=== PATIENT | female | born 1980 | race Caucasian/White ===

== ENCOUNTER 2018-01-13 21:50 | Emergency (ER) | payer MEDICAID, OTHER ==
[2018-01-13 21:50] VITALS: BMI 23.3
[2018-01-13 22:04] VITALS: RESP 18; TEMP 98
--- NOTE | 2018-01-13 22:34 | C.PDOC ---
History Of Present Illness 37 y/o female presents to ED for near syncopal episode due to grief while at today. Denies any other physical complaints. Time Seen by Provider: 01/13/18 22:28 Chief Complaint (Nursing): Anxiety History Per: Patient History/Exam Limitations: no limitations Onset/Duration Of Symptoms: Hrs Current Symptoms Are (Timing): Still Present Suicide/Self Injury Attempted (Context): None Modifying Factor(s): None Associated Symptoms: denies: Suicidal Thoughts, Suicidal Plan Involuntary Hold By: None Recent travel outside of the [place]: No Past Medical History Reviewed: Historical Data, Nursing Documentation, Vital Signs Vital Signs: Last Vital Signs Temp 98 F 01/13/18 22:38 Pulse 85 01/13/18 22:38 Resp 18 01/13/18 22:38 BP 126/75 01/13/18 22:38 Pulse Ox 99 01/13/18 22:38 - Medical History PMH: No Chronic Diseases Denies: Chronic Kidney Disease - [facility] Procedures INCIS VULVA/PERINEUM NEC (04/30/13) TETANUS TOXOID ADMINIST (04/30/13) Family History: States: Unknown Family Hx - Social History Hx Tobacco Use: No Hx Alcohol Use: Yes Hx Substance Use: No - Immunization History Hx Tetanus Toxoid Vaccination: No Hx Influenza Vaccination: No Hx Pneumococcal Vaccination: No Review Of Systems Constitutional: Negative for: Fever, Chills Gastrointestinal: Negative for: Nausea, Vomiting, Abdominal Pain, Diarrhea Skin: Negative for: Rash Neurological: Positive for: Other (Near syncopal episode ). Negative for: Weakness, Numbness, Headache, Dizziness Psych: Negative for: Suicidal ideation Physical Exam - Physical Exam Appears: Well, Non-toxic, No Acute Distress, Other (Tearful; relaxed; sleeping in ER) Skin: Normal Color, Warm, Dry Head: Atraumatic, Normacephalic Eye(s): bilateral: Normal Inspection, PERRL, EOMI Oral Mucosa: Moist Neck: Supple Chest: Symmetrical, No Tenderness Cardiovascular: Rhythm Regular, No Murmur Respiratory: Normal Breath Sounds, No Decreased Breath Sounds, No Rales, No Rhonchi, No Wheezing Gastrointestinal/Abdominal: Normal Exam, Soft, No Tenderness Extremity: Normal ROM, No Deformity Extremity: Bilateral: Atraumatic, Normal Color And Temperature, Normal ROM Neurological/Psych: Oriented x3, Normal Speech, Normal Motor, Normal Sensation, Normal Reflexes Gait: Steady ED Course And Treatment O2 Sat by Pulse Oximetry: 98 (RA) Pulse Ox Interpretation: Normal Medical Decision Making Medical Decision Making: grieving, normal process no panic now sleeping on eval wants d/c home to rest. no medical intervention required. Disposition Doctor Will See Patient In The: Office Counseled Patient/Family Regarding: Studies Performed, Diagnosis - Disposition Referrals: [facility] [Outside] [place] [facility] [place] [Outside] [facility] [Outside] [facility] [Outside] Non [facility] Provider, [Non-Staff] - Disposition: HOME/ ROUTINE Disposition Time: 22:33 Condition: GOOD Additional Instructions: sigue con [facility] necessarios. Instructions: Dealing With , Adult Forms: [facility] (Macedonian) Print Language: KHMER - Clinical Impression Clinical Impression: Grieving - Scribe Statement The provider has reviewed the documentation as recorded by the Scribe Ozzie Golden All medical record entries made by the Scribe were at my direction and personally dictated by me. I have reviewed the chart and agree that the record accurately reflects my personal performance of the history, physical exam, medical decision making, and the department course for this patient. I have also personally directed, reviewed, and agree with the discharge instructions and disposition.
[2018-01-13 22:39] VITALS: BP 126/75; PULSE 85
[2018-01-14 00:25] VITALS: O2SAT 98
== END 2018-01-13 22:37 | disposition home or self-care (01) ==
LOC: C.ER 21:50 → SUPCPDRO 21:50 → C.ER 22:37
DX: F43.21 Adjustment disorder with depressed mood (principal)